=== PATIENT | female | born 1960 | race Caucasian/White ===

== ENCOUNTER 2019-08-04 12:16 | Emergency (ER) | payer BC ==
[~2019-08-04] VITALS: Ht 167.6 cm; Wt 99.3 kg
[2019-08-04] MEDS ORDERED: TDAP DIPH,PERTUSS,TET VAC/PF 0.5 ML DISP.SYRIN IM ONE ×2 (12:45→13:06)
--- NOTE | 2019-08-04 13:16 | NUR ---
PT WAS EVALUATED BY DR HONG. PT WAS D/C'd TO HOME. D/C INSTRUCTIONS DIVEN TO THE PT.
[2019-08-04 13:18] VITALS: BP 146/81
== END 2019-08-04 13:19 | disposition home or self-care (01) ==
LOC: ER 12:16
DX: S51.852A Open bite of left forearm, initial encounter (principal); J45.909 Unspecified asthma, uncomplicated; Z88.1 Allergy status to other antibiotic agents; Z88.8 Allergy status to other drugs, medicaments and biological substances; W54.0XXA Bitten by dog, initial encounter; Y93.89 Activity, other specified; Y92.89 Other specified places as the place of occurrence of the external cause; Y99.8 Other external cause status
CPT/HCPCS: 90715; A4663